=== PATIENT | female | born 1990 | race Two or more races ===

== ENCOUNTER 2017-03-08 05:28 | Day surgery (SDC) | payer OTHER ==
[2017-03-04 17:10] VITALS: BMI 18.6
[2017-03-08] VITALS (11 sets, daily range): BP systolic 98–107; BP diastolic 53–63; PULSE 68–78; RESP 15–26; Ht 160 cm; Wt 47.5 kg
[~2017-03-08] VITALS: Ht 160 cm; Wt 47.5 kg
[2017-03-08] MEDS ORDERED: SOD CHLORIDE 0.9% 1,000 ML IV SCH (06:41)
--- NOTE | 2017-03-08 06:41 | HPN ---
Date/Time of Note Date/Time of Note DATE: 03/08/17 TIME: 06:41 Interval H&P Admission Note Pt. seen H&P reviewed: No system changes MESSI VILLANUEVA MD Mar 08, 2017 06:41
[2017-03-08] MEDS ORDERED: morphine 2 MG INJ IV PRN (07:00)
[2017-03-08] MEDS ORDERED: LIDOCAINE 2% (SDV) 5 ML INJ ONE (07:00)
[2017-03-08] MEDS ORDERED: OXYCODONE/ACETAMINOPHEN (5/325) TAB PO PRN ×4 (07:00→12:30)
[2017-03-08] MEDS ORDERED: ONDANSETRON 4 MG INJ IV PRN ×2 (07:00→12:30)
[2017-03-08] MEDS ORDERED: morphine 4 MG/ML VIAL IV PRN (07:00)
[2017-03-08] MEDS ORDERED: PROPOFOL 20 ML ONE (07:01)
[2017-03-08] MEDS ORDERED: SUCCINYLCHOLINE CHLORIDE 100 MG/5 ML SYG IV ONE (07:01)
[2017-03-08] MEDS ORDERED: MEPERIDINE 100 MG INJ ONE (07:01)
[2017-03-08] MEDS ORDERED: GLYCOPYRROLATE 1 MG INJ ONE (07:01)
[2017-03-08] MEDS ORDERED: ROCURONIUM 50 MG INJ ONE ×2 (07:01→08:34)
[2017-03-08] MEDS ORDERED: NEOSTIGMINE 3 MG/3 ML SYRINGE ONE (07:01)
[2017-03-08] MEDS ORDERED: POVIDONE IODINE 10% 28.4 GM OINT ONE (07:04)
[2017-03-08] MEDS ORDERED: ROPIVACAINE 0.5 % 30 ML VIAL ONE ×2 (07:04→07:21)
[2017-03-08] MEDS ORDERED: HEPARIN 1000 UNITS/ML 10 ML INJ ONE (07:04)
[2017-03-08] MEDS ORDERED: CEFAZOLIN 1 GM INJ ONE (07:42)
[2017-03-08] MEDS ORDERED: THROMBIN 5000 UNIT VIAL ONE (07:51)
[2017-03-08] MEDS ORDERED: CA CHLORIDE 10% 10 ML SYRINGE ONE (07:52)
[2017-03-08] MEDS ORDERED: ONDANSETRON 4 MG INJ ONE (08:34)
[2017-03-08] MEDS ORDERED: METOCLOPRAMIDE 10 MG INJ ONE (08:34)
--- NOTE | 2017-03-08 10:47 | OPPN ---
Date/Time of Note Date/Time of Note DATE: 03/08/17 TIME: 10:43 Operative Report Preoperative Diagnosis left ankle OCD lesion Postoperative Diagnosis left ankle OCD lesion Operation/Procedure Performed BMAC harvest from L iliac crest L ankle arthroscopy, debridement, medial tibial OCD debridement and injection of BMAC Surgeon see signature line chef's assistant raza Anesthesia: general Estimated blood loss: none Transfusion Required none Specimen none Grafts/Implants none Complications none MESSI VILLANUEVA MD Mar 08, 2017 10:47
--- NOTE | 2017-03-08 11:52 | OPR ---
DATE OF OPERATION: 03/08/2017 PREOPERATIVE DIAGNOSIS: Osteochondral lesion of the distal tibia over the medial malleolus. POSTOPERATIVE DIAGNOSES: Osteochondral lesion of the distal tibia over the medial malleolus. NAME OF OPERATION: Left iliac crest bone marrow aspiration. SURGEON: Messi Villanueva MD AMMONIA REFRIGERATION TECHNICIAN: Vasile Mckinney MD ANESTHESIA: General. DESCRIPTION OF PROCEDURE: The patient was taken to the operating room, placed in supine position. Satisfactory general anesthesia was administered, and 1 gm of Ancef intravenously. The left iliac c rest was prepped and draped in the usual manner. The skin was pulled up. A small dennis incision was made over the center of the iliac crest. The bone marrow aspirate needle was inserted with a malle t, 30 mL of bone marrow aspirate was aspirated with a syringe coated with heparin, and a second 30 m L syringe was also obtained, so a total of 60 mL of bone marrow aspirate was removed. The wounds we re then irrigated clear. Wounds were closed with 4-0 black nylon interrupted. Steri-Strips, compre ssion dressing was applied. The patient was then repositioned. All new gowns, gloves, drapes and instruments were used after th e patient was repositioned into the appropriate area for the ankle arthroscopy. ENVIRONMENTAL INSPECTOR ORTHOPEDIC SURGEON: During the procedure, an assistant vice president orthopedic surgeon was used at my request. The assistant vice president helped with impacting the bone marrow aspirate needle into the iliac crest a nd helped with aspiration. Without a skilled surgeon assisting me, this could not have been done an d should therefore be compensated appropriately. Dictated By: MESSI VILLANUEVA MD RF/ALEXIS Conf#: [id number] DID#: [id number]
--- NOTE | 2017-03-08 12:14 | OPR ---
DATE OF OPERATION: 03/08/2017 ADDENDUM Hvac Operations Technician number is [id number]. RACING MANAGER ORTHOPEDIC SURGEON: During the procedure, an materials assistant orthopedic surgeon was used at my request. The materials assistant helped with distracting the ankle, maneuvering the arthroscope and also with drilling while I held the drill guide in place. Without a skilled orthopedic surgeon assisting me, this could not have been done, and thus should be compensated appropriately. Dictated By: MESSI VILLANUEVA MD RF/ALEXIS Conf#: [id number] DID#: [id number]
--- NOTE | 2017-03-08 12:29 | OPR ---
DATE OF OPERATION: 03/08/2017 PREOPERATIVE DIAGNOSES: 1. Cystic osteochondral lesion of the medial malleolus, left ankle. 2. Rule out an osteochondral lesion of the tibia. POSTOPERATIVE DIAGNOSES: 1. Cystic osteochondral lesion of the distal tibia along the medial malleolus, 2 x 2, standing half way out to the perimeter of the medial malleolus. 2. Chondromalacia, grade I, of parts of the tibia and talus. 3. Synovitis and scar tissue. OPERATIONS PERFORMED: 1. Arthroscopy of the left ankle with soft tissue distraction. 2. Excision of osteochondral lesion of the medial malleolus and distal tibia. 3. Drilling and microfracture of osteochondral lesion, distal tibia and medial malleolus. 4. Extensive debridement. 5. Insertion of bone marrow aspirate into the osteochondral lesion. 6. Short-leg splint. SURGEON: Messi Villanueva MD. GLOBAL SOURCING MANAGER: Katt Chavez MD. ANESTHESIA: General with a popliteal block. TOURNIQUET TIME: 102 minutes. DESCRIPTION OF PROCEDURE: The patient taken to the operating room and placed in supine position. S atisfactory popliteal block was given, satisfactory general anesthesia administered, 1 gram Ancef gi cristopher intravenously. The left thigh secured in the thigh jaimes. Arms were carefully padded. The le ft leg was prepped and draped in the usual manner. Superficial peroneal nerve was marked out. The tourniquet inflated to 250 mmHg, and soft tissue distraction device was applied. Standard anteromed ial, anterolateral, and posterolateral portals were used, using extreme caution to avoid injuring ne urovascular structures. There was synovitis along the medial malleolar talar articulation. There w as a hole that was visible along the junction of the medial malleolus of the distal tibia consistent with her preoperative CT and MRI. There was some mild grade I chondromalacia scattered around the tibia and the talus, synovitis along the front of the ankle and syndesmosis in lateral gutter. Ante rior talofibular ligament looked intact. Central overhang was intact. There was hemorrhagic synovi al nodule and synovitis in the posterior ankle. Shaver was inserted. The medial gutter was debride d and soft tissue peeled off the distal tibia. The anterior gutter and syndesmosis were debrided, a s was the lateral gutter. Suction basket was used to excise the hemorrhagic synovial nodule, and th e posterior gutter was debrided. Attention was then turned to the osteochondral lesion. We palpated with a probe. Using different c urettes, we were able to curet out the osteochondral lesion, take out the fibrous membrane. When we were done, it measured about 2 x 2 mm. It was not very big but definitely present. Once it was co mpletely debrided, microfracture was used to scrape out further membrane and poked some holes in the area. A 0.045 K-wire was then used obliquely from lateral to medial to drill holes into the lesion from different angles, including through the posterior portal and anterior portal. A Micro Vector drill guide was then inserted, and another hole was drilled by making a small incision over the medi al malleolus and into the area of the lesion again. After we did this, the inflow was turned off. Excellent bleeding was obtained. After complete debridement of the ankle, an 18-gauge needle was pl aced in obliquely from lateral to medial into the osteochondral lesion. We then closed all the port als and then injected the bone marrow aspirate, waited 5 minutes and released the tourniquet. A com pression dressing was then applied after a saphenous nerve block done with 0.5% ropivacaine. Deputy Sheriff K9 Handler ior splint was then applied in neutral position. At the end of the procedure, sponge and needle cou nt was correct. Patient tolerated the procedure well. Dictated By: MESSI VILLANUEVA MD RF/NTS Conf#: [id number] DID#: [id number] CC: KATT CHAVEZ MD;*EndCC*
[2017-03-08] MEDS ORDERED: hydrALAzine 20 MG INJ IV PRN (12:30)
[2017-03-08] MEDS ORDERED: MIDAZOLAM 1 MG/ML 2 ML INJ IV PRN (12:30)
[2017-03-08] MEDS ORDERED: MEPERIDINE 25 MG INJ IV PRN (12:30)
[2017-03-08] MEDS ORDERED: EPHEDrine SULFATE 50 MG/5 ML SYG IV PRN (12:30)
[2017-03-08] MEDS ORDERED: METOCLOPRAMIDE 10 MG INJ IV PRN (12:30)
[2017-03-08] MEDS ORDERED: FENTAnyl 50 MCG/ML VIAL IV PRN ×3 (12:30)
[2017-03-08] MEDS ORDERED: DIPHENHYDRAMINE 50 MG INJ IV PRN (12:30)
[2017-03-08] MEDS ORDERED: HYDROmorphONE (0.2 MG/ML) 10ML SYG IV PRN ×3 (12:30)
[2017-03-08] MEDS ORDERED: LABETALOL HCL 20MG INJ IV PRN (12:30)
== END 2017-03-08 14:00 | disposition home or self-care (01) ==
LOC: SDS 05:28
PROVIDERS: ATTEND Orthopaedic Surgery
DX: M93.272 Osteochondritis dissecans, left ankle and joints of left foot (principal); M94.272 Chondromalacia, left ankle and joints of left foot
CPT/HCPCS: 29892; 38220; J0690; J1644; J2270; J2405; J2710; J2765; J2795; J2175